=== PATIENT | male | born 1970 | race Caucasian/White ===

== ENCOUNTER 2016-08-31 14:02 | Emergency (ER) | payer OTHER ==
[~2016-08-31 14:02] MED LIST: CIPRO250 MG PO; LORATADINE PO; VOLTAREN75 MG PO
[2016-08-31 15:38] LABS: BASOPHIL# 0.1 X10e3 (0-0.3); BASOPHIL% 0.9 % (0-2.5); EOSINOPHIL# 0.3 X10e3 (0-0.7); EOSINOPHIL% 2.6 % (0.0-7.0); HEMATOCRIT 48.1 % (38.0-50.0); HEMOGLOBIN 16.2 gm/dL (13.0-16.0); LYMPHOCYTE# 2.9 X10e3 (1.0-3.5); MEAN CORPUSCULAR HEMOGLOBIN 28.6 PG (28-34); MEAN CORPUSCULAR HGB CONC 33.7 g/dL (30-36); MEAN PLATELET VOLUME 8.1 FL (6.5-11.5); MONOCYTE# 0.6 X10e3 (0-1.0); MONOCYTE% 5.3 % (3.0-12.0); NEUTROPHIL# 7.7 X10e3 (1.5-7.1); NEUTROPHIL% 66.2 % (40-75); PLATELET COUNT 263 X10e3 (140-420); RED BLOOD COUNT 5.65 X10e (3.90-5.60); RED CELL DISTRIBUTION WIDTH 13.2 % (11.0-15.5); WHITE BLOOD COUNT 11.6 X10e3 (4.0-10.5)
[2016-08-31 15:40] LABS: DIFF IND NO
[2016-08-31 16:09] LABS: ALBUMIN SERUM 4.4 g/dL (3.5-5.0); BILIRUBIN, DIRECT 0.1 mg/dL (0.0-0.2); BILIRUBIN,INDIRECT 0.5 mg/dL (0.0-0.9); BILIRUBIN,TOTAL 0.6 mg/dL (0.2-2.0); BUN/CREATININE RATIO 11.25; CALCIUM SERUM 8.8 mg/dL (8.4-10.2); CREATININE SERUM 0.8 mg/dL (0.6-1.4); GLOM FILT RATE Estimated 107.2 mL/min (>60); POTASSIUM 3.9 mmol/L (3.5-5.1); PROTEIN TOTAL SERUM 7.2 g/dL (6.0-8.3)
[2016-08-31 16:11] LABS: URINE SOURCE CLEAN CATCH
[2016-08-31 16:33] LABS: URINE APPEARANCE CLEAR; URINE BILIRUBIN NEG (NEG); URINE BLOOD NEG (NEG); URINE COLOR YELLOW; URINE GLUCOSE NEG (NEG); URINE KETONE NEG (NEG); URINE LEUKOCYTE ESTERASE NEG (NEG); URINE NITRATE NEG (NEG); URINE PH 5.5 (5-8); URINE PROTEIN NEG (NEG)
[2016-08-31 17:00] LABS: CULTURE INDICATED? NO
== END 2016-08-31 16:49 | disposition home or self-care (01) ==
LOC: CED 14:02
DX: K62.5 Hemorrhage of anus and rectum (principal); F17.200 Nicotine dependence, unspecified, uncomplicated
CPT/HCPCS: 36415; 80048; 80076; 81003; 83690; 85025; 99283

== ENCOUNTER → 2016-11-19 | Outpatient (CLI) | payer OTHER ==
--- NOTE | ~2016-11-19 | CT17 ---
[facility] A Service of [facility] RADIOLOGY TEXT RESULTS PATIENT: LORE [facility]IN [facility] UN[facility] #: [id number] AGE: [address]: JOSE STACK SEX: M ORDER DR: [id number] [facility] [address] [place], [place] [address] [id number] O MR#: [id number] Acc #: [id number] NAME: LORE SPAIN : 1970 SEX: M STUDY DATE/TIME: 11/19/2016 9:32 UNIT: [place] ROOM: STUDY DESCRIPTION: CT Angio Head Attending Physician: Vanesa Pate Referring Physician: Vanesa Pate Ordering Physician: Vanesa Pate Primary Care Physician: Eleonora Hilario M.D. MEDICAL IMAGING REPORT This report is preliminary unless electronic signature is present EXAM CT angiogram of the head neck with contrast dated 11/19/2016. COMPARISON CT head without contrast dated 03/10 02:11. HISTORY Dizziness, numbness and tingling in the left hand for [address] angiogram of the head and neck was obtained with IV contrast in the axial plane followed by reformats. Curved reformats of the bilateral neck arteries were performed. Reformats of the [place] in all 3 planes, tumbling 3-D MIP images and surface rendered images with bilateral MCA snap shots were performed of the [place] in a separate workstation as per the protocol. Neck: Two-vessel aortic arch is seen. The left common carotid artery arises from the innominate artery mainly after its origin. Bilateral common carotid arteries, internal and external carotid arteries are unremarkable. Left vertebral artery is dominant. Bilateral internal and external carotid arteries are unremarkable. No stenosis, aneurysm or AVM. Head: Bilateral intracranial internal carotid arteries, anterior and middle cerebral arteries are within normal limits. ACOM and bilateral PCom are present. Bilateral posterior cerebral arteries, bilateral superior cerebellar arteries are unremarkable. The right vertebral artery decreases in caliber significantly after the takeoff of the right PICA. There is no associated atherosclerotic plaque. No aneurysm or AVM is seen. Anterior middle cerebral arteries are unremarkable. Dural venous sinuses are patent. [facility] A Service of [facility] RADIOLOGY TEXT RESULTS PATIENT: LORE SPAIN LOCATION: [place] : 70 UNIT #: [id number] AGE: [address]: JOSE STACK SEX: M ORDER DR: IMPRESSION 1. No hemodynamically flow-limiting significant stenosis in bilateral internal carotid artery bulbs per NASCET criteria. 2. No dissection, aneurysm or AVM in the head or neck. 3. 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 Dictated by... Debora Cheng M.D. THIS IS AN ELECTRONICALLY VERIFIED REPORT Debora Cheng M.D. at 11/20/2016 5:24 PM CPR/cmm TD: 11/19/2016 12:54 JOB #: [id number] MEDICAL IMAGING REPORT Page 1 of 1 COPY
== END | disposition home or self-care (01) ==
LOC: CCAT 08:31
DX: R42 Dizziness and giddiness (principal); R20.2 Paresthesia of skin; R13.10 Dysphagia, unspecified
CPT/HCPCS: 70496; 70498; Q9967